=== PATIENT | female | born 1960 | race Caucasian/White ===

== ENCOUNTER 2016-04-21 11:05 | Day surgery (SDC) | payer OTHER ==
[2016-04-21] MEDS ORDERED: PROPOFOL/EMULSION 500 MG/50 ML BOTTLE IV ONE (12:21)
[2016-04-21] MEDS ORDERED: LIDOCAINE 2% 100 MG/5 ML SYR IVP ONE (12:23)
--- NOTE | 2016-04-21 13:29 | GPN ---
[f rep st] PROCEDURE NOTE PROCEDURE: Colonoscopy and biopsy. INDICATION: Personal history of 11 mm cecal polyp removed in piecemeal fashion January 2015. This is to evaluate for any residual tissue. PREOPERATIVE DIAGNOSIS: Rule out residual tissue from previous polypectomy site. POSTOP DIAGNOSES: 1. Previous polypectomy site looks good with the Krala ink on either side, status post biopsy to make sure there is no residual tissue. 2. Otherwise normal colonoscopy. INFORMED CONSENT: I had a detailed discussed with the patient regarding the procedure, alternatives, benefits, and risks including bleeding, perforation, infection, and risks of medication. Informed consent was signed and witnessed. MEDICATIONS: IV general. DESCRIPTION OF PROCEDURE: Patient was placed in the left lateral decubitus position. A visual and digital anorectal examination was performed. The video colonoscope was inserted via the rectum, advanced under visualization to the terminal ilium. Upon withdrawal of the instrument, careful attention was paid to the mucosal detail. The prep was very good. The previous area of polypectomy was noted in the cecum. There was Karla ink on either side and scar in the middle. I biopsied the scar area to make sure there was no residual tissue. To my eye it looks normal. Retroflex examination was performed in the cecum. The endoscope was un-retroflexed and withdrawn, confirming the above findings. The patient tolerated the procedure well was transferred to recovery in satisfactory condition. IMPRESSION: 1. Post polypectomy site in the cecum looks normal scar without obvious residual tissue Karla ink on either side. Status post biopsy. Recommendation. 2. Otherwise normal exam. RECOMMENDATIONS: 1. Follow up pathology of tissue. 2. To repeat colonoscopy pending pathology results. If there is any residual tissue, we will repeat the procedure within 6-12 months, if there is no residual tissue repeat in 3-5 years. 3. High-fiber diet. 4. Follow up with primary care physician as scheduled. Thank you for allowing me to participate in this patient's healthcare. Do not hesitate to call me with any questions. /[id number]/MODL MTDD
== END 2016-04-21 14:22 | disposition home or self-care (01) ==
LOC: FSGY 11:05
PROVIDERS: ATTEND Internal Medicine Gastroenterology
PROC: 0DBH8ZX Excision of Cecum, Via Natural or Artificial Opening Endoscopic, Diagnostic (ICD-10-PCS; principal; 2016-04-21 12:15)
DX: Z86.010 Personal history of colon polyps (principal)
CPT/HCPCS: J2001; J2704

== ENCOUNTER → 2017-02-11 | Outpatient (CLI) | payer OTHER | LOC: BMCIMAGING 13:07 | PROVIDERS: ATTEND Family Medicine | DX: Z12.31 Encounter for screening mammogram for malignant neoplasm of breast (principal); Z80.3 Family history of malignant neoplasm of breast | CPT/HCPCS: G0202 ==

== ENCOUNTER → 2018-05-03 | Outpatient (CLI) | payer OTHER | LOC: BMCIMAGING 09:07 | PROVIDERS: ATTEND Family Medicine | DX: Z12.31 Encounter for screening mammogram for malignant neoplasm of breast (principal) ==

== ENCOUNTER → 2018-05-11 | Outpatient (CLI) | payer OTHER | LOC: BRMIMAGING 08:55 | PROVIDERS: ATTEND Family Medicine | DX: R92.8 Other abnormal and inconclusive findings on diagnostic imaging of breast (principal) ==